=== PATIENT | female | born 2000 | race Two or more races ===

== ENCOUNTER 2021-01-08 17:09 | Emergency (ER) | payer MEDICAID ==
[~2021-01-08] VITALS: Ht 152.4 cm; Wt 47.6 kg
[2021-01-08 17:40] VITALS: BP 105/65
[2021-01-08] MEDS ORDERED: cefTRIAXone 1 GM in NS 55 ML IVPB ONE (18:00)
[2021-01-08] MEDS ORDERED: Morphine Sulfate 2mg/ml Inj(IV/IM USE ONLY) IVP ONE (18:15)
[2021-01-08 18:45] LABS: BASOPHILS % (AUTO) 0.9 % (0.0-2.0); HEMATOCRIT 40.4 % (37.0-47.0); HEMOGLOBIN 13.1 G/DL (12.0-16.0); LYMPHOCYTES % (AUTO) 19.1 % (20.0-45.0); MEAN CORPUSCULAR VOLUME 89 FL (80-99); MONOCYTES % (AUTO) 4.5 % (1.0-10.0); NEUTROPHILS % (AUTO) 74.6 % (45.0-75.0); PLATELET COUNT 230 K/UL (150-450); RED BLOOD COUNT 4.54 M/UL (4.20-5.40); RED CELL DISTRIBUTION WIDTH 12.3 % (11.6-14.8); WHITE BLOOD COUNT 10.7 K/UL (4.8-10.8)
[2021-01-08 18:50] LABS: ANION GAP 8 mmol/L (5-15); BLOOD UREA NITROGEN 12 mg/dL (7-18); CALCIUM 8.8 MG/DL (8.5-10.1); CARBON DIOXIDE 27 MMOL/L (21-32); CHLORIDE 107 MMOL/L (98-107); CREATININE 0.7 MG/DL (0.55-1.30); POTASSIUM 3.6 MMOL/L (3.5-5.1); SODIUM 142 MMOL/L (136-145)
[2021-01-08 18:54] LABS: ALANINE AMINOTRANSFERASE 16 U/L (12-78); ALBUMIN 3.8 G/DL (3.4-5.0); ALBUMIN/GLOBULIN RATIO 1.2 (1.0-2.7); ALKALINE PHOSPHATASE 56 U/L (46-116); ASPARTATE AMINO TRANSFERASE 17 U/L (15-37); BILIRUBIN,TOTAL 0.3 MG/DL (0.2-1.0)
--- NOTE | 2021-01-08 21:09 | Emergency Room Report ---
History of Present Illness General Chief Complaint: Allergic Reaction Source: Patient Present Illness HPI 20-year-old female with no significant past medical history here complaining of 8 days of heavy vaginal bleeding and clotting. Patient reports that 1 month ago she received a Depo shot for her first time and since then her periods have been irregular and clotting. Patient also reports that 1 month ago she was diagnosed with chlamydia however never received treatment. Patient reports that she is sexually active with 2 sexual partners and both are aware of the chlamydia. Denies fever chills at this time. Denies urinary frequency and urgency. Reports that for the past few days she has been having left lower quadrant abdominal pain denying any vaginal discharge. Denies prior . Denies chest pain, shortness of breath, headache and dizziness. Has not taken medication for symptom relief. Denies tobacco smoking drug use.Also complains of few bouts of nonbloody emesis and feeling nauseated but denies diarrhea, other URI symptoms. Allergies: Coded Allergies: No Known Allergies (Unverified , 01/08/21) COVID-19 Screening Contact w/high risk pt: No Experienced COVID-19 symptoms?: No COVID-19 Testing performed [facility]: Yes COVID-19 Screening: Negative COVID-19 COVID-19 Testing Source: 1 month ago Patient History Past Medical History: see triage record Past Surgical History: none Pertinent Family History: none Last Menstrual Period: 01/01/21 Now: No Immunizations: UTD Reviewed Nursing Documentation: PMH: Agreed; PSxH: Agreed Nursing Documentation-PMH Past Medical History: No Stated History Review of Systems All Other Systems: negative except mentioned in HPI Physical Exam Vital Signs Date Time Temp Pulse Resp B/P (MAP) Pulse Ox O2 Delivery O2 Flow Rate FiO2 01/08/21 17:31 99.0 96 18 105/65 (78) 96 Room Air Sp02 EP Interpretation: reviewed, normal General Appearance: alert, non-toxic, mild distress Head: normocephalic, atraumatic Eyes: bilateral eye normal inspection, bilateral eye PERRL ENT: no angioedema Neck: full range of motion, supple Respiratory: chest non-tender, lungs clear, normal breath sounds, no rhonchi, no respiratory distress, no retraction, no accessory muscle use, no wheezing Cardiovascular #1: regular rate, rhythm, no edema, no murmur Cardiovascular #2: 2+ carotid (R), 2+ carotid (L), 2+ radial (R), 2+ radial (L) Gastrointestinal: no mass, no organomegaly, no peritonitis, no bruit, non-dist ended, no hernia, no pulsatile mass, no rebound, guarding - LLQ Rectal: deferred Genitourinary: no CVA tenderness Musculoskeletal: back normal Neurologic: alert, motor strength/tone normal, oriented x3, sensory intact, responsive, speech normal Psychiatric: judgement/insight normal, memory normal, mood/affect normal, no suicidal/homicidal ideation Skin: no rash Lymphatic: no adenopathy Medical Decision Making PA Attestation All my diagnosis and treatment plans were reviewed ad discussed with my supervising physician Dr. Cole Diagnostic Impression: Primary Impression: DUB (dysfunctional uterine bleeding) Additional Impression: Chlamydia ER Course 20-year-old female with no significant past medical history here complaining of 8 days of heavy vaginal bleeding and clotting. Patient reports that 1 month ago she received a Depo shot for her first time and since then her periods have been irregular and clotting. Patient also reports that 1 month ago she was diagnosed with chlamydia however never received treatment. Patient reports that she is sexually active with 2 sexual partners and both are aware of the chlamydia. Denies fever chills at this time. Denies urinary frequency and urgency. Reports that for the past few days she has been having left lower quadrant abdominal pain denying any vaginal discharge. Denies prior . Denies chest pain, shortness of breath, headache and dizziness. Has not taken medication for symptom relief. Denies tobacco smoking drug use. Also complains of few bouts of nonbloody emesis and feeling nauseated but denies diarrhea, other URI symptoms. Ddx considered but are not limited to: PID, chlamydia, gonorrhea, complication, ectopic , dysfunctional uterine bleeding Vital signs: are WNL, pt. is afebrile H&PE are most consistent with: Dysfunctional uterine bleeding most likely secondary to Depo shot, chlamydia, gonorrhea ORDERS: UA, urine cx, hCG qualitative, CBC, CMP, pelvic ultrasound, doxycycline, Motrin, Zofran ED INTERVENTIONS: Morphine, Zofran, NS bolus DISCHARGE: At this time pt. is stable for d/c to home. Will provide printed p atient care instructions, and any necessary prescriptions. Care plan and follow up instructions have been discussed with the patient prior to discharge. Follow-up with [facility], medication as directed, if worsening symptoms return to the emergency room. Also have partner treated for chlamydia and gonorrhea. Chlamydia gonorrhea usually occur together. CT/MRI/US Diagnostic Results CT/MRI/US Diagnostic Results : Imaging Test Ordered: Pelvic US Impression MPRESSION: Increased vascularity at the adnexal regions raising concern for possible pelvic venous congestion syndrome. Magnetic resonance imaging of the pelvis with gadolinium administration is advised for further evaluation. Last Vital Signs Date Time Temp Pulse Resp B/P (MAP) Pulse Ox O2 Delivery O2 Flow Rate FiO2 01/08/21 19:14 99.0 01/08/21 17:40 96 18 Room Air 01/08/21 17:40 105/65 96 Disposition: HOME, SELF-CARE Condition: Stable Referrals: NOT CHOSEN IPA/MD,REFERRING (PCP) Patient Instructions: Chlamydia, Female, [id number], Dysfunctional Uterine Bleeding Additional Instructions: Follow-up with [facility], medication as directed, if worsening symptoms return to the emergency room. Also have partner treated for chlamydia and gonorrhea. Chlamydia gonorrhea usually occur together. Chirag Fiore Jan 08, 2021 21:09
--- NOTE | 2021-01-08 21:18 | Diagnostic Imaging Report ---
ADDENDUM - Added by Chandrakant Bowels MD on 01/09/2021 5:21 PM (-08:00) This is a correction to the original report. The exam performed with transabdominal and transvaginal imaging of the pelvis. EXAM: US Pelvis Transabdominal, Complete CLINICAL HISTORY: PAIN TECHNIQUE: Real-time complete transabdominal pelvic ultrasound with image documentation. COMPARISON: No previous study. FINDINGS: Uterus/cervix: The uterus measures 4.3 x 3.5 x 2.8 cm. Endometrial stripe measures 0.6 cm per No myometrial mass. Right ovary: Right ovary measures 1.9 x 1.1 x 1.8 cm. Flow is demonstrated to the ovaries appeared Normal blood flow. Left ovary: Left ovary measures 2.5 x 1.3 x 1.5 cm. Free fluid: No free fluid. Bladder: Unremarkable as visualized. Wall is normal thickness for degree of distention. Vasculature: Increased vascularity is noted about the adnexal regions. IMPRESSION: Increased vascularity at the adnexal regions raising concern for possible pelvic venous congestion syndrome. Magnetic resonance imaging of the pelvis with gadolinium administration is advised for further evaluation.
[2021-01-08] MEDS ORDERED: IBUPROFEN600 M1 ORAL (21:32)
[2021-01-08] MEDS ORDERED: ZOFRAN4 M1 ORAL (21:32)
[2021-01-08] MEDS ORDERED: DOXYCYCLINE HY100 M6 PO (21:32)
[2021-01-08 21:49] VITALS: BP 102/68
--- NOTE | 2021-01-08 21:49 | NUR ---
ER DISCHARGE NOTE: Patient is cleared to be discharged per ERMD, pt is aox4, on room air, with stable vital signs. pt was given dc and prescription instructions, pt was able to verbalize understanding, pt id band and iv site removed without complications. pt is able to ambulate with steady gait. pt took all belongings.
== END 2021-01-08 21:48 | disposition home or self-care (01) ==
LOC: EMR 18:02
DX: N93.8 Other specified abnormal uterine and vaginal bleeding (principal); A74.9 Chlamydial infection, unspecified
CPT/HCPCS: 76830; 76856; 80053; 84703; 85025; 85610; 85730; 96361; 96365; 96375; J0696; J2270; J2405; J7030; Z7502; 99284